=== PATIENT | male | born 1980 | race Caucasian/White ===

== ENCOUNTER 2017-03-03 10:37 | Emergency (ER) | payer OTHER ==
[~2017-03-03] VITALS: Ht 167.6 cm; Wt 74.6 kg
[2017-03-03 10:41] VITALS: BP 129/80
== END 2017-03-03 13:47 | disposition home or self-care (01) ==
LOC: ED 13:33
DX: R10.9 Unspecified abdominal pain (principal); Z90.89 Acquired absence of other organs
CPT/HCPCS: 81003; 99283

== ENCOUNTER 2020-09-30 22:01 | Emergency (ER) | payer BC, OTHER ==
[~2020-09-30] VITALS: Ht 167.6 cm; Wt 80.8 kg
[2020-09-30] MEDS ORDERED: LIDOCAINE-MPF 1%, 5ML ONE (22:26)
[2020-09-30] MEDS ORDERED: LIDOCAINE-MPF 1%, 5ML INFIL ONE (22:30)
[2020-09-30] MEDS ORDERED: NEOSPORIN OINT. PKT 1 PACKET ONE (23:12)
[2020-09-30 23:25] VITALS: BP 121/84
== END 2020-09-30 23:27 | disposition home or self-care (01) ==
LOC: ED 22:56
DX: S91.202A Unspecified open wound of left great toe with damage to nail, initial encounter (principal); X58.XXXA Exposure to other specified factors, initial encounter; Y93.89 Activity, other specified; Y92.89 Other specified places as the place of occurrence of the external cause; Y99.8 Other external cause status
CPT/HCPCS: 11730; 99284